=== PATIENT | male | born 1965 | race Caucasian/White ===

== ENCOUNTER 2017-07-24 10:39 | Emergency (ER) | payer BC ==
[~2017-07-24] VITALS: Ht 157.5 cm; Wt 68.0 kg
[2017-07-24 10:41] VITALS: BP 155/70; PULSE 128; RESP 16; TEMP 98.2; O2SAT 96
[2017-07-24 10:59] VITALS: PULSE 118; O2SAT 99
[2017-07-24] MEDS ORDERED: PRAV10TA PO (11:01)
[2017-07-24] MEDS ORDERED: LISI-515 PO (11:01)
--- NOTE | 2017-07-24 11:09 | PD ---
HPI Chief Complaint: Medical Clearance Time Seen by Provider: 11:03 Travel History International Travel<30 days: No Contact w/Intl Traveler<30days: No Traveled to known affect area: No History of Present Illness HPI 52-year-old female presents to the emergency room for cast check. Patient had a cast placed 2 weeks ago after having surgery on her right first metatarsal. This was a revision surgery after failed surgery one year ago because of noncompliance. States she had her second surgery performed by a commercial litigation attorney in [place], [place] on July 13 and they went back in on July 16. She had a fiberglass cast placed 2 days ago. Patient was told she can absolutely not get the cast wet. She was told even sweating could cause delayed healing or infection around the stitches site. Patient states last night in the shower , she accidentally got water in her cast. Her commercial litigation attorney had no after hours or weekend call hours. She is visiting here from [place] for [employer]. [facility]MERLY [facility], [facility] Social History Tobacco Use: No Allergies-Medications (Allergen,Severity, Reaction): Coded Allergies: No Known Allergies (Unverified , 07/24/17) Reported Meds & Prescriptions Reported Meds & Active Scripts Active Reported Pravastatin 10 Mg Tab 10 Mg PO DAILY Lisinopril 20 Mg Tab 20 Mg PO DAILY Review of Systems Except as stated in HPI: all other systems reviewed are Neg Physical Exam Narrative GENERAL: Well-nourished, well-developed female in no acute distress. Afebrile. Ambulatory with crutches. SKIN: Focused skin assessment warm/dry. HEAD: Normocephalic. EYES: No scleral icterus. No injection or drainage. NECK: Supple, trachea midline. No JVD or lymphadenopathy. CARDIOVASCULAR: Regular rate and rhythm without murmurs, gallops, or rubs. RESPIRATORY: Breath sounds equal bilaterally. No accessory muscle use. MSK: Right leg casted. Cast is clean but wet. Data Data Last Documented VS Vital Signs Date Time Temp Pulse Resp B/P (MAP) Pulse Ox O2 Delivery O2 Flow Rate FiO2 07/24/17 10:59 118 99 Room Air 07/24/17 10:41 98.2 16 Orders Orders Splint Or Brace Apply/Monitor (07/24/17 11:04) [facility] Medical Decision Making Medical Screen Exam Complete: Yes Emergency Medical Condition: Yes Medical Record Reviewed: Yes Differential Diagnosis Noncompliance, medical clearance, wound recheck Narrative Course 52-year-old female presents to the emergency room requesting cast removal and replacement. Patient got her cast wet in the shower last night. She had surgery 2 weeks ago and had a cast placed 2 days ago. She has not been able to follow up with her commercial litigation attorney because he has no late night or weekend office hours. Patient is on vacation from [place], [place]. She is concerned because she was told if the cast gets wet, it can cause delayed healing and/or infection. Patient has a clean but wet cast in place on the right lower extremity. The cast was removed by the [facility] and patient was placed in a posterior short leg splint. She was told to follow-up on Wednesday for replacement of hard cast by her commercial litigation attorney. She understands and agrees to plan. Of note, patient was noted to be tachycardic while in ED. When asked about this , she states that this is normal for her and ever since she was in her 20s she has had a normal heart rate in the 120s. States she used to be on medication for it but they took her off. She denies chest pain, shortness of breath, or any other symptoms this time. Diagnosis Primary Impression: Cast removal Additional Impression: Cast in place on lower extremity Referrals: Booster Station Operator Additional Instructions: Follow-up with your commercial litigation attorney Wednesday morning. He will need to apply a new hard cast. Return for worsening symptoms. Disposition: 01 DISCHARGE HOME Condition: Stable Lois Cleary Jul 24, 2017 11:09
--- NOTE | 2017-07-24 11:09 | PD ---
HPI Chief Complaint: Medical Clearance Time Seen by Provider: 11:03 Travel History International Travel<30 days: No Contact w/Intl Traveler<30days: No Traveled to known affect area: No History of Present Illness HPI 52-year-old female presents to the emergency room for cast check. Patient had a cast placed 2 weeks ago after having surgery on her right first metatarsal. This was a revision surgery after failed surgery one year ago because of noncompliance. States she had her second surgery performed by a media assistant in [place], [place] on July 13 and they went back in on July 16. She had a fiberglass cast placed 2 days ago. Patient was told she can absolutely not get the cast wet. She was told even sweating could cause delayed healing or infection around the stitches site. Patient states last night in the shower , she accidentally got water in her cast. Her media assistant had no after hours or weekend call hours. She is visiting here from [place] for [employer]. [facility] Social History Tobacco Use: No Allergies-Medications (Allergen,Severity, Reaction): Coded Allergies: No Known Allergies (Unverified , 07/24/17) Reported Meds & Prescriptions Reported Meds & Active Scripts Active Reported Pravastatin 10 Mg Tab 10 Mg PO DAILY Lisinopril 20 Mg Tab 20 Mg PO DAILY Review of Systems Except as stated in HPI: all other systems reviewed are Neg Physical Exam Narrative GENERAL: Well-nourished, well-developed female in no acute distress. Afebrile. Ambulatory with crutches. SKIN: Focused skin assessment warm/dry. HEAD: Normocephalic. EYES: No scleral icterus. No injection or drainage. NECK: Supple, trachea midline. No JVD or lymphadenopathy. CARDIOVASCULAR: Regular rate and rhythm without murmurs, gallops, or rubs. RESPIRATORY: Breath sounds equal bilaterally. No accessory muscle use. MSK: Right leg casted. Cast is clean but wet. Data Data Last Documented VS Vital Signs Date Time Temp Pulse Resp B/P (MAP) Pulse Ox O2 Delivery O2 Flow Rate FiO2 07/24/17 10:59 118 99 Room Air 07/24/17 10:41 98.2 16 Orders Orders Splint Or Brace Apply/Monitor (07/24/17 11:04) [facility] Medical Decision Making Medical Screen Exam Complete: Yes Emergency Medical Condition: Yes Medical Record Reviewed: Yes Differential Diagnosis Noncompliance, medical clearance, wound recheck Narrative Course 52-year-old female presents to the emergency room requesting cast removal and replacement. Patient got her cast wet in the shower last night. She had surgery 2 weeks ago and had a cast placed 2 days ago. She has not been able to follow up with her media assistant because he has no late night or weekend office hours. Patient is on vacation from [place], [place]. She is concerned because she was told if the cast gets wet, it can cause delayed healing and/or infection. Patient has a clean but wet cast in place on the right lower extremity. The cast was removed by the [facility] and patient was placed in a posterior short leg splint. She was told to follow-up on Wednesday for replacement of hard cast by her media assistant. She understands and agrees to plan. Of note, patient was noted to be tachycardic while in ED. When asked about this , she states that this is normal for her and ever since she was in her 20s she has had a normal heart rate in the 120s. States she used to be on medication for it but they took her off. She denies chest pain, shortness of breath, or any other symptoms this time. Diagnosis Primary Impression: Cast removal Additional Impression: Cast in place on lower extremity Referrals: Calciner Feeder Additional Instructions: Follow-up with your media assistant Wednesday morning. He will need to apply a new hard cast. Return for worsening symptoms. Disposition: 01 DISCHARGE HOME Condition: Stable Lois Cleary Jul 24, 2017 11:09
--- NOTE | 2017-07-24 11:09 | PD ---
HPI Chief Complaint: Medical Clearance Time Seen by Provider: 11:03 Travel History International Travel<30 days: No Contact w/Intl Traveler<30days: No Traveled to known affect area: No History of Present Illness HPI 52-year-old female presents to the emergency room for cast check. Patient had a cast placed 2 weeks ago after having surgery on her right first metatarsal. This was a revision surgery after failed surgery one year ago because of noncompliance. States she had her second surgery performed by a breaker off in [place], [place] on July 13 and they went back in on July 16. She had a fiberglass cast placed 2 days ago. Patient was told she can absolutely not get the cast wet. She was told even sweating could cause delayed healing or infection around the stitches site. Patient states last night in the shower , she accidentally got water in her cast. Her breaker off had no after hours or weekend call hours. She is visiting here from [place] for [employer]. [facility] Social History Tobacco Use: No Allergies-Medications (Allergen,Severity, Reaction): Coded Allergies: No Known Allergies (Unverified , 07/24/17) Reported Meds & Prescriptions Reported Meds & Active Scripts Active Reported Pravastatin 10 Mg Tab 10 Mg PO DAILY Lisinopril 20 Mg Tab 20 Mg PO DAILY Review of Systems Except as stated in HPI: all other systems reviewed are Neg Physical Exam Narrative GENERAL: Well-nourished, well-developed female in no acute distress. Afebrile. Ambulatory with crutches. SKIN: Focused skin assessment warm/dry. HEAD: Normocephalic. EYES: No scleral icterus. No injection or drainage. NECK: Supple, trachea midline. No JVD or lymphadenopathy. CARDIOVASCULAR: Regular rate and rhythm without murmurs, gallops, or rubs. RESPIRATORY: Breath sounds equal bilaterally. No accessory muscle use. MSK: Right leg casted. Cast is clean but wet. Data Data Last Documented VS Vital Signs Date Time Temp Pulse Resp B/P (MAP) Pulse Ox O2 Delivery O2 Flow Rate FiO2 07/24/17 10:59 118 99 Room Air 07/24/17 10:41 98.2 16 Orders Orders Splint Or Brace Apply/Monitor (07/24/17 11:04) [facility] Medical Decision Making Medical Screen Exam Complete: Yes Emergency Medical Condition: Yes Medical Record Reviewed: Yes Differential Diagnosis Noncompliance, medical clearance, wound recheck Narrative Course 52-year-old female presents to the emergency room requesting cast removal and replacement. Patient got her cast wet in the shower last night. She had surgery 2 weeks ago and had a cast placed 2 days ago. She has not been able to follow up with her breaker off because he has no late night or weekend office hours. Patient is on vacation from [place], [place]. She is concerned because she was told if the cast gets wet, it can cause delayed healing and/or infection. Patient has a clean but wet cast in place on the right lower extremity. The cast was removed by the [facility] and patient was placed in a posterior short leg splint. She was told to follow-up on Wednesday for replacement of hard cast by her breaker off. She understands and agrees to plan. Of note, patient was noted to be tachycardic while in ED. When asked about this , she states that this is normal for her and ever since she was in her 20s she has had a normal heart rate in the 120s. States she used to be on medication for it but they took her off. She denies chest pain, shortness of breath, or any other symptoms this time. Diagnosis Primary Impression: Cast removal Additional Impression: Cast in place on lower extremity Referrals: Supply Service Worker Additional Instructions: Follow-up with your breaker off Wednesday morning. He will need to apply a new hard cast. Return for worsening symptoms. Disposition: 01 DISCHARGE HOME Condition: Stable Lois Cleary Jul 24, 2017 11:09
== END 2017-07-24 12:31 | disposition home or self-care (01) ==
LOC: NEPK 10:39
DX: Z47.89 Encounter for other orthopedic aftercare (principal); R00.0 Tachycardia, unspecified
CPT/HCPCS: 29515